=== PATIENT | female | born 1975 | race Caucasian/White ===

== ENCOUNTER 2017-05-17 10:23 | Emergency (ER) | payer BC ==
[2017-05-17 10:30] VITALS: BP 133/83
--- NOTE | 2017-05-17 11:14 | UC ---
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 denies itch Onset Severity: Mild Current Severity: Mild Aggravating: Touch Alleviating: OTC Meds - hydrocortisone cream, Antihistamines Associated Signs & Symptoms: Positive: Negative - Allergy/Home Medications Allergies/Adverse Reactions: Allergies Allergy/AdvReac Type Severity Reaction Status Date / Time Penicillins [PCN] Allergy Rash Verified 05/17/17 10:26 Review of Systems Constitutional: Negative Skin: Rash Respiratory: Negative Cardiovascular: Negative Psychological: Negative All Other Systems Reviewed And Are Negative: Yes PMH/Surg Hx/FS Hx/Imm Hx Previously Healthy: Yes Cardiovascular History: Cardiac Disease - Surgical History Surgical History: None - Family History Known Family History: Positive: None - Social History Occupation: Employed Full-time Lives: With Family Alcohol Use: Occasionally Substance Use Type: None Smoking Status (MU): Never Smoked Tobacco Physical Exam Triage Information Reviewed: Yes Appearance: Well-Appearing, No Pain Distress, Well-Nourished Vital Signs: Initial Vital Signs Temp 98 F 05/17/17 10:27 Pulse 56 05/17/17 10:27 Resp 17 05/17/17 10:27 BP 133/83 05/17/17 10:27 Pulse Ox 100 05/17/17 10:27 Vital Signs Reviewed: Yes Eye Exam: Normal Respiratory Exam: Normal Cardiovascular Exam: Normal Musculoskeletal Exam: Normal Neurological Exam: Normal Psychological Exam: Normal Skin: Positive: rashes - large patch erythemic, blistered skin R forearm, linear patches vesiclar rash L arm and thighs Course/Dx - Differential Diagnoses - Skin Complaint Differential Diagnoses: Allergic Reaction, Cellulitis, Contact Dermatitis, Poison Fabi, Poison [place] - hog weed - Diagnoses Provider Diagnoses: contact dermatitis. poison fabi Discharge - Discharge Plan Condition: Stable Disposition: HOME Prescriptions: Methylprednisolone [Medrol Dosepak 4 MG*] 0 mg PO .SEE YOBANI INSTRUCTION #1 yobani Patient Education Materials: Poison Fabi (ED) Referrals: Misha Tyler MD [Medical Doctor] - 3 Days (if no better) Additional Instructions: avoid sun on affected areas use prednisone as directed on yobani continue over the counter benadryl as directed may apply hydrocortisone cream to rash as directed when needed
== END 2017-05-17 11:28 | disposition home or self-care (01) ==
LOC: UCEAST 10:23
DX: L25.5 Unspecified contact dermatitis due to plants, except food (principal); Z88.0 Allergy status to penicillin
CPT/HCPCS: 99212; G0463

== ENCOUNTER 2022-03-13 02:17 | Observation (INO) ==
[2022-03-13 04:20] LABS: ABS Basophils 0.1 10^3/ul (0-0.2); ABS Lymphocytes 0.8 10^3/ul (1.0-4.8); ABS Monocytes 0.3 10^3/ul (0-0.8); ABS Neutrophils 4.6 10^3/ul (1.5-7.7); Eosinophil % 0.8 %; Hematocrit 37 % (35-47); Hemoglobin 12.2 g/dL (12.0-16.0); Lymphocyte % 13.7 %; Mean Corpuscular HGB Conc 33 g/dL (31-36); Mean Corpuscular Hemoglobin 29 pg (27-31); Mean Corpuscular Volume 88 fL (80-97); Mean Platelet Volume 7.6 fL (7.4-10.4); Platelet Count 251 10^3/uL (150-450); Red Cell Distribution Width 15 % (10-15); White Blood Count 5.9 10^3/uL (3.5-10.8)
[2022-03-13 04:26] LABS: INR 0.96 (0.86-1.15)
[2022-03-13 04:50] LABS: ALT 15 U/L (7-52); AST 22 U/L (13-39); Albumin 4.3 g/dL (3.2-5.2); Albumin/Globulin Ratio 1.7 (1-3); Alcohol, S < 13 mg/dL (<13); Alkaline Phosphatase 39 U/L (35-149); Anion Gap 5 mmol/L (2-11); Blood Urea Nitrogen 13 mg/dL (6-24); CO2 Carbon Dioxide 27 mmol/L (22-32); Calcium 9.1 mg/dL (8.6-10.3); Chloride 106 mmol/L (101-111); Creatine Kinase 243 U/L (10-223); Globulin 2.5 g/dL (2-4); Glucose 108 mg/dL (70-100); Magnesium 2.2 mg/dL (1.9-2.7); Sodium 138 mmol/L (135-145); Total Protein 6.8 g/dL (6.4-8.9); eGFR CKD-EPI 110.1 (>60)
[2022-03-13 04:54] LABS: HCG Pregnancy < 0.60 mIU/mL
[2022-03-13 05:03] LABS: TSH Ultra Thyroid Stim Horm 3.17 mcIU/mL (0.34-5.60)
[2022-03-13 05:14] LABS: Vitamin B12 312 pg/mL (180-914)
[2022-03-13 05:39] LABS: Urine Appearance Turbid; Urine Bilirubin Negative (Negative); Urine Blood 1+ (Negative); Urine Color Yellow; Urine Glucose Negative (Negative); Urine Ketones Negative (Negative); Urine Nitrite Negative (Negative); Urine Protein Negative (Negative); Urine Specific Gravity 1.015 (1.002-1.030); Urine Urobilinogen Negative (Negative)
[2022-03-13 05:54] LABS: Urine Amorphous Crystals Present (Absent); Urine Bacteria Absent (Absent); Urine Red Blood Cell Absent (Absent); Urine Squamous Epithelial Cell Present (Absent); Urine White Blood Cell Absent (Absent)
[2022-03-13 05:55] LABS: Urine Benzodiazepine Screen None Detected (None Detect); Urine Cannabinoids Screen Presumptive Positive (None Detect); Urine Opiates Screen None Detected (None Detect)
[2022-03-13] MEDS ORDERED: Gadoteridol (CONTRAST) 279.3 MG/ML 10 ML IV ONE (13:33)
[2022-03-13 15:30] VITALS: BP 134/76
== END 2022-03-13 16:17 | disposition home or self-care (01) ==
LOC: ED 02:17 → EDHOLD 02:17 → MED 14:42
PROVIDERS: ADMIT Hospitalist; ATTEND Internal Medicine